=== PATIENT | male | born 1985 | race Caucasian/White ===

== ENCOUNTER 2021-02-08 01:45 | Emergency (ER) | payer SELFPAY ==
[~2021-02-08] VITALS: Ht 177.8 cm; Wt 65.0 kg
--- NOTE | 2021-02-08 01:45 | NUR ---
THIS IS A 35M BIB EMS, PT WAS FOUND DOWN AND UNRESPONSIVE, PT HAD NEEDLES NEARBY. 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 UPON ARRIVAL TO ED, PT WAS A/OX4, RESP EVEN AND UNLABORED. PT VERY TEARFUL AND ADMITS TO USING HEROIN TONIGHT BUT DENIES ALL SI. PT CONNECTED TO ALL MONITORING VSS.
[2021-02-08] MEDS ORDERED: NALOXONE 0.4 MG/ML, 1ML IVPush PRN (02:00)
--- NOTE | 2021-02-08 02:18 | NUR ---
PT PROVIDED WARM BLANKETS
--- NOTE | 2021-02-08 03:12 | NUR ---
Pt sleeping, RR equal and unlabored. VSS, wakes up with verbal communication. Will continue to monitor.
[2021-02-08] MEDS ORDERED: ONDANSETRON ODT 4 MG PO ONE (04:00)
[2021-02-08] MEDS ORDERED: ONDANSETRON ODT 4 MG ONE (04:01)
--- NOTE | 2021-02-08 04:03 | NUR ---
Pt denies n/v, requesting water. Denies abd pain. VSS.
[2021-02-08 05:03] VITALS: BP 125/71
--- NOTE | 2021-02-08 05:03 | NUR ---
Passes po challenge, no n/v, remains a/ox4. waiting for dispo.
== END 2021-02-08 05:16 | disposition home or self-care (01) ==
LOC: ED 05:10
DX: T40.1X1A Poisoning by heroin, accidental (unintentional), initial encounter (principal); F17.210 Nicotine dependence, cigarettes, uncomplicated; Y92.9 Unspecified place or not applicable
CPT/HCPCS: 99406